=== PATIENT | female | born 1960 | race Caucasian/White ===

== ENCOUNTER 2017-12-12 20:05 | Emergency (ER) | payer SELFPAY ==
[~2017-12-12] VITALS: Ht 157.5 cm; Wt 65.6 kg
[2017-12-12 20:09] VITALS: BP 160/92; PULSE 88; TEMP 98.8
== END 2017-12-12 20:48 | disposition home or self-care (01) ==
LOC: COL.ER 20:05
DX: S61.412A Laceration without foreign body of left hand, initial encounter (principal); W26.8XXA Contact with other sharp object(s), not elsewhere classified, initial encounter; Y92.009 Unspecified place in unspecified non-institutional (private) residence as the place of occurrence of the external cause

== ENCOUNTER → 2019-06-23 | Outpatient (CLI) | payer OTHER ==
[2019-06-23 09:12] LABS: BASO % 0.6 % (0.0-2.0); EOS # 0.2 (0.0-0.7); EOS % 3.7 % (0-4.0); GRAN # 2.9 (1.4-6.5); GRAN % 53.1 % (42.2-75.2); HEMATOCRIT 43.2 % (37.0-47.0); HEMOGLOBIN 14.2 g/dl (12.5-16.0); LYMPH # 1.8 (1.2-3.4); LYMPH % 32.4 % (20.0-51.0); MEAN CELL VOLUME 82 fl (80.0-100.0); MEAN CORPUSCULAR HEMOGLOBIN 27 pg (27.0-31.0); MEAN CORPUSCULAR HGB CONC 33 g/dl (33.0-37.0); MEAN PLATELET VOLUME 10.2 fl (7.4-10.4); MONO # 0.5 (0.1-0.6); MONO % 9.6 % (1.7-9.3); PLATELET COUNT 279 K/mm3 (130-400); RED BLOOD COUNT 5.24 M/mm3 (4.10-5.30); REDCELL DISTRIBUTION WIDTH-CV 13.9 % (11.5-14.5)
[2019-06-23 09:19] LABS: CALCIUM 9.1 mg/dL (8.4-10.2); CHOLESTEROL RISK RATIO 5.8; CREATININE, serum 0.73 (0.52-1.25)
== END ==
LOC: COL.LAB 08:29
PROVIDERS: Family Medicine
DX: M54.5 Low back pain (principal); R07.89 Other chest pain

== ENCOUNTER → 2019-07-16 | Outpatient (CLI) | payer OTHER | LOC: MC.RAD 15:27 | DX: Z12.31 Encounter for screening mammogram for malignant neoplasm of breast (principal); N64.4 Mastodynia ==

== ENCOUNTER 2020-01-01 00:50 | Inpatient (IN) | payer SELFPAY ==
[~2020-01-01] VITALS: Ht 154.9 cm; Wt 66.5 kg
[2020-01-01 01:35] LABS: BASO % 0.2 % (0.0-2.0); EOS # 0.1 (0.0-0.7); EOS % 0.8 % (0-4.0); GRAN # 11.7 (1.4-6.5); GRAN % 87.9 % (42.2-75.2); HEMATOCRIT 42.8 % (37.0-47.0); HEMOGLOBIN 14.2 g/dl (12.5-16.0); LYMPH # 0.8 (1.2-3.4); LYMPH % 6.3 % (20.0-51.0); MEAN CELL VOLUME 82 fl (80.0-100.0); MEAN CORPUSCULAR HEMOGLOBIN 27 pg (27.0-31.0); MEAN CORPUSCULAR HGB CONC 33 g/dl (33.0-37.0); MEAN PLATELET VOLUME 10.5 fl (7.4-10.4); MONO # 0.6 (0.1-0.6); MONO % 4.5 % (1.7-9.3); PLATELET COUNT 258 K/mm3 (130-400); REDCELL DISTRIBUTION WIDTH-CV 13.3 % (11.5-14.5)
[2020-01-01 01:48] LABS: ALBUMIN 4.7 gm/dL (3.5-5.0); BILIRUBIN,TOTAL 0.5 mg/dL (0.0-1.0); CALCIUM 9.4 mg/dL (8.4-10.2); CREATININE, serum 0.85 (0.52-1.25); TOTAL PROTEIN 9.1 gm/dL (6.4-8.2)
[2020-01-01 02:28] LABS: COLLECTION METHOD CLEAN CATCH
[2020-01-01 02:37] LABS: MUCOUS Present /lpf; PH 6 (5-8); SQUAMOUS EPITHELIAL 0-2 /hpf; URINE APPEARANCE Hazy; URINE BACTERIA Rare /hpf; URINE BILIRUBIN Negative (NEGATIVE); URINE BLOOD Negative (NEGATIVE); URINE COLOR Yellow; URINE GLUCOSE Negative (NEGATIVE); URINE KETONE Negative (NEGATIVE); URINE LEUKOCYTE ESTERASE 3+ (NEGATIVE); URINE NITRATE Negative (NEGATIVE); URINE PROTEIN(semi-quant) Negative (NEGATIVE); URINE UROBILINOGEN Negative (NEGATIVE)
[2020-01-01] MEDS ORDERED: OMNICEF 300MG300 MG PO ×2 (02:47)
[2020-01-01] MEDS ORDERED: FLAGYL500 MG PO ×2 (05:13)
--- NOTE | 2020-01-01 09:50 | NUR ---
arrived on unit per WC and assisted into bed, call light within reach, denies needs at this time
--- NOTE | 2020-01-01 10:30 | NUR ---
resting in bed, attempted to complete admission assessment, patient only speaks very minimal Syriac, will wait until her daughter arrives to try and complete, physical assessment completed, according to ED report patient has no real medical history, she is pleasant and cooperative
[2020-01-01 11:01] VITALS: BP 117/60; PULSE 98; TEMP 98.3
--- NOTE | 2020-01-01 11:15 | NUR ---
asking how long she will be here, informed her I did not know and would need to check with physician
--- NOTE | 2020-01-01 12:29 | NUR ---
Dr Giron in to see patient
--- NOTE | 2020-01-01 13:00 | NUR ---
requesting something to eat, dietary notified
--- NOTE | 2020-01-01 14:40 | NUR ---
resting in bed talking on phone, had full liquid diet and tolerated well but didn't really like it
--- NOTE | 2020-01-01 15:48 | NUR ---
remains resting in bed, denies needs
--- NOTE | 2020-01-01 16:30 | NUR ---
appears to be sleeping, in bed with eyes closed, resp quiet and easy
[2020-01-01 17:33] VITALS: BP 124/61; PULSE 97; TEMP 98.8
--- NOTE | 2020-01-01 18:00 | NUR ---
has rested in bed remainder of shift without c/os or needs
--- NOTE | 2020-01-01 18:47 | NUR ---
bedside shift report given to ALEJANDRO Alexandre
[2020-01-01 19:54] VITALS: BP 123/63; PULSE 100; TEMP 98.5
--- NOTE | 2020-01-01 20:30 | NUR ---
Initial shift assessment done- denies pain, no diarrhea, denies nausea but does not have any appetite, IV fluids of NS at 100cc/hr, Tele on. Up on own to bathroom, steady on feet.
[2020-01-02] VITALS: BP 117/60; PULSE 93; TEMP 99.5
[2020-01-02 03:53] VITALS: BP 115/69; PULSE 88; TEMP 98.2
--- NOTE | 2020-01-02 07:00 | NUR ---
Quiet night- no requests, slept well, VSS did have slight temp at 99.5
[2020-01-02 07:40] VITALS: BP 103/58; PULSE 86; TEMP 98.3
--- NOTE | 2020-01-02 07:59 | NUR ---
Patient laying in bed, easily awakened with verbal command. A&Ox4. VSS. IV CDI, fluids infusing. Denies pain and discomfort. No further needs expressed from the patient. Call light within reach
[2020-01-02 09:31] LABS: BASO % 0.2 % (0.0-2.0); EOS # 0.1 (0.0-0.7); EOS % 1.8 % (0-4.0); GRAN # 2.7 (1.4-6.5); LYMPH # 1.6 (1.2-3.4); LYMPH % 31.8 % (20.0-51.0); MEAN CELL VOLUME 83 fl (80.0-100.0); MEAN CORPUSCULAR HGB CONC 33 g/dl (33.0-37.0); MEAN PLATELET VOLUME 10.6 fl (7.4-10.4); MONO # 0.6 (0.1-0.6); MONO % 11.6 % (1.7-9.3); PLATELET COUNT 208 K/mm3 (130-400); RED BLOOD COUNT 4.21 M/mm3 (4.10-5.30); REDCELL DISTRIBUTION WIDTH-CV 13.2 % (11.5-14.5)
[2020-01-02 09:37] LABS: HEMATOCRIT 34.8 % (37.0-47.0); HEMOGLOBIN 11.4 g/dl (12.5-16.0); MEAN CORPUSCULAR HEMOGLOBIN 27 pg (27.0-31.0)
[2020-01-02 09:57] LABS: CALCIUM 8.3 mg/dL (8.4-10.2); CREATININE, serum 0.79 (0.52-1.25); POTASSIUM 3.6 mmol/L (3.4-5.0)
[2020-01-02 12:14] VITALS: BP 141/76; PULSE 83; TEMP 98
--- NOTE | 2020-01-02 12:49 | NUR ---
Patient is rwandan speaking and needs state wildlife officer. Plan: Plan is to return home with DTR Jelly . Assessment: SW met with patient in room with nurse who translated. Patient reports that she does not have a PCP but is okay with a referral to a primary at [facility] with rwandan speaking person. Patient reports that she uses [facility] on [address] for RX. Patient shares that her DTR will get her home. . Action: Patient reports that she will follow up with a pcp if they could get one. DTR to help transport home. nothing follows.
[2020-01-02 15:18] VITALS: BP 154/84; PULSE 94; TEMP 98.3
[2020-01-02] MEDS ORDERED: OMNICEF 300MG300 MG PO (15:41)
[2020-01-02] MEDS ORDERED: ZOFRAN ODT4 MG PO (15:42)
--- NOTE | 2020-01-02 16:28 | NUR ---
Discharge paperwork reviewed with patient usinf telephone caustic strength inspector. Patient verbalized and understanding to Dr Navarro to follow doctors orders. IV removed, tip intact, gauze and coban covering. Personal belongings with patient. Patient transfered by wheelchair to ER entrance. No further needs expressed from the patient.
== END 2020-01-02 16:29 | disposition home or self-care (01) | DRG 690 ==
LOC: COL.ER 00:50 → MEDICAL 06:25
PROVIDERS: Emergency Medicine; Physician Assistant; ADMIT Student in an Organized Health Care Education/Training Program
DX: N39.0 Urinary tract infection, site not specified (principal); K52.9 Noninfective gastroenteritis and colitis, unspecified; E86.0 Dehydration; R00.0 Tachycardia, unspecified; N28.1 Cyst of kidney, acquired; K80.20 Calculus of gallbladder without cholecystitis without obstruction; Z20.828 Contact with and (suspected) exposure to other viral communicable diseases
CPT/HCPCS: 99222-AI; 99231-AI; 99239; J0696; J2270; J2405; J7030; Q9967

== ENCOUNTER → 2020-05-24 | Emergency (ER) | payer SELFPAY ==
[~2020-05-24] MED LIST: FLAGYL500 MG PO; OMNICEF 300MG300 MG PO; ZOFRAN ODT4 MG PO
== END ==
LOC: COL.ER 12:47
DX: Z00.00 Encounter for general adult medical examination without abnormal findings (principal)

== ENCOUNTER → 2020-05-26 | Outpatient (CLI) | payer SELFPAY | LOC: ZCOL.LAB 20:45 | DX: U07.1 COVID-19 (principal) ==

== ENCOUNTER → 2020-08-25 | Outpatient (CLI) | payer SELFPAY | LOC: COL.RAD 07:34 | DX: N28.1 Cyst of kidney, acquired (principal); K80.20 Calculus of gallbladder without cholecystitis without obstruction; L90.5 Scar conditions and fibrosis of skin ==

== ENCOUNTER → 2021-04-04 | Outpatient (CLI) | payer SELFPAY | LOC: MC.RAD 12:50 | DX: Z12.31 Encounter for screening mammogram for malignant neoplasm of breast (principal) ==

== ENCOUNTER 2023-02-18 13:42 | Emergency (ER) | payer OTHER ==
[~2023-02-18] VITALS: Ht 152.4 cm; Wt 67.7 kg
[2023-02-18 14:02] VITALS: BP 155/79; TEMP 98.1
[2023-02-18 16:38] VITALS: PULSE 79
== END 2023-02-18 16:38 | disposition home or self-care (01) ==
LOC: COL.ER 13:42
DX: M25.561 Pain in right knee (principal); M54.32 Sciatica, left side; Z87.891 Personal history of nicotine dependence